=== PATIENT | female | born 1985 | race Caucasian/White ===

== ENCOUNTER → 2018-07-23 11:31 | Outpatient (CLI) | payer MEDICAID, SELFPAY ==
[2018-07-23 16:11] LABS: Cholesterol 181 mg/dL (200); High Density Lipoprotein 56 mg/dL; Triglycerides 80 mg/dL; Very Low Density Lipoprotein 16 mg/dL (5-40)
== END ==
PROVIDERS: Family Provider Family Medicine; PCP Family Medicine; Referring Provider Family Medicine; Visit Provider Family Medicine
DX: Z13.220 Encounter for screening for lipoid disorders (principal)
CPT/HCPCS: 36415; 80061

== ENCOUNTER → 2019-12-20 13:48 | Outpatient (CLI) | payer OTHER, SELFPAY ==
[2015-12-03 15:25] VITALS: BMI 23.9
[2019-12-20 16:49] LABS: Ferritin 27 ng/mL (8-252); Glucose 85 mg/dL (74-106); Sodium Level 140 mmol/L (136-145); Thyroid Stim Hormone (TSH) 1.59 uIU/mL (0.358-3.74)
[2019-12-20 18:43] LABS: Hemoglobin A1c 4.7 % (3.8-5.6)
== END ==
PROVIDERS: PCP Family Medicine; Referring Provider Family Medicine; Visit Provider Family Medicine
DX: F32.81 Premenstrual dysphoric disorder (principal); E66.9 Obesity, unspecified; F32.0 Major depressive disorder, single episode, mild
CPT/HCPCS: 36415; 82728; 82947; 83036; 84295; 84443

== ENCOUNTER 2020-08-09 04:06 | Emergency (ER) | payer BC, SELFPAY ==
[2020-08-09 04:07] VITALS: BP 134/89; PULSE 88; RESP 18; TEMP 36.3; O2SAT 99; BMI 35.9
--- NOTE | 2020-08-09 04:13 | RAD_ITS ---
STUDY: X-RAY - CERVICAL SPINE REASON FOR EXAM: Female, 35 years old. pain, radiculopathy TECHNIQUE: 4 view(s) of the cervical spine were obtained. COMPARISON: None FINDINGS: Normal anterior atlantoaxial articulation. Normal odontoid process. Normal cervical lordosis. Normal vertebral bodies and endplates. Normal disc space heights. Normal visualized intervertebral neuroforamina. The soft tissue structures are unremarkable. RAD/Cerv Spine 2 or 3 Views IMPRESSION: Normal x-ray examination of the visualized cervical spine. Electronically Signed: Eric Sanchez DO at 4:46 EDT Tel , Service support ,
[2020-08-09] MEDS: Orphenadrine 60 MG/2 ML Ampul IM (04:19)
[2020-08-09] MEDS: Ketorolac 30 MG/ML Syringe IM (04:19)
--- NOTE | 2020-08-09 05:06 | EX.ED.UPPERE ---
HPI History of Present Illness Chief Complaint: Upper Extremity Injury Informant: patient Occured/Mechanism Comment: Patient fell weeks ago and injured her right neck and right arm Onset/Context/Timing Onset: Today Context: - (After she was at the chiropractor) Timing: Continuous Current Severity: Severe Worsened by: Movement and use Associated Symptoms Associated Symptoms: Negative for Parasthesia, Weakness and Loss of Funtion Narrative Narrative: Patient fell days ago and injured her right neck and right shoulder. She has not had imaging. She was seen at a chiropractor and had some manipulation but is having continued pain. No new injuries. No blood thinner use. No weakness or numbness, but the pain does radiate down her right arm. No history of neck or back surgery. No history of immune compromise. [facility] Medical History Acute depression Home Medications cyclobenzaprine 10 mg PO TID PRN #20 tablet 08/09/20 [Rx Last Taken Unknown] escitalopram oxalate [Lexapro] 20 mg PO DAILY 08/09/20 [History Last Taken Unknown] methylprednisolone [Medrol (Nba)] 4 mg PO DAILY #21 tab 08/09/20 [Rx Last Taken Unknown] naproxen 500 mg PO BID PRN #20 tab 08/09/20 [Rx Last Taken Unknown] Allergy/AdvReac Type Severity Reaction Status Date / Time No Known Allergies Allergy Verified 08/09/20 04:11 Social History Smoking Status: Never smoker ROS ROS ED Constitutional Constitutional ED: Denies chills or sweats Eyes Eyes: Denies change in vision ENT ENT ED: Denies ear pain Cardiovascular Cardiovascular: Denies chest pain Respiratory/Chest Respiratory/Chest: Denies dyspnea Gastrointestinal Gastrointestinal: Denies abdominal pain, nausea or vomiting Genitourinary Genitourinary ED: Denies dysuria Musculoskeletal Musculoskeletal: Reports myalgias and neck pain; Denies back pain Integumentary Denies rash Neurologic Neurologic: Denies headache(s), paresthesias or weakness Psychiatric Psychiatric: Denies depression Endocrine Endocrinology: Denies polyuria Hematologic/Lymphatic Hematologic/Lymphatic: Denies easy bruising Allergic/Immunologic Allergic/Immunologic ED: Denies urticaria EXAM Physical Exam Const Vital Signs: 08/09/20 04:07 Temperature 97.3 F L Temperature Source Temporal Pulse Rate 88 Respiratory Rate 18 Blood Pressure 134/89 H Blood Pressure Mean 104 Pulse Ox 99 Positive well nourished and well developed General Appearance ED: well developed HEENT normocephalic and atraumatic Eyes EOMs intact bilaterally Neck Neck Narrative: Tenderness over the right trapezius General: tenderness Resp normal respiratory effort Cardio regular rate Back/Spine Cervical Spine: Negative for cervical spine tenderness Thoracic Spine / Upper Back: Negative for thoracic spinal tenderness Lumbar Spine / Lower Back: Negative for lumbar spinal tenderness Extremity normal to inspection Neuro oriented x3, moves all extremities, no focal motor deficits and no sensory deficits noted Sensorium / Orientation: alert Psych mental status grossly normal Skin Rashes: no rashes MDM MDM MDM Narrative Medical decision making narrative: Patient complains of cervical spine pain, but her exam is pretty unremarkable. She does have some muscle tenderness, but no midline or spinal tenderness. She is neurovascularly intact. This sounds like a radiculopathy. I did check x-rays which were unremarkable. X-rays were reviewed by the radiologist and myself. Patient was treated with medication. She will follow-up with her PCP. She was given a prescription for naproxen, Flexeril, Medrol Dosepak. Return for any new or worsening issues. Radiography Diagnostic Testing: Radiology Impression Cervical Spine X-Ray 08/09/20 04:13 IMPRESSION: Normal x-ray examination of the visualized cervical spine. Electronically Signed: Eric Sanchez DO at 4:46 EDT Tel , Service support , Discharge Plan Triage Chief Complaint: Upper Extremity Injury ED Provider: Tavo Sosa Dx/Rx/DC Orders Clinical Impression: Cervical radiculopathy Instructions: ED Radiculopathy, Cervical Prescriptions: New naproxen 500 mg tablet 500 mg PO BID PRN Qty: 20 RF: 0 cyclobenzaprine 10 mg tablet 10 mg PO TID PRN (Reason: Muscle Spasm) Qty: 20 RF: 0 methylprednisolone [Medrol (Nba)] 4 mg tablets,dose pack 4 mg PO DAILY Qty: 21 RF: 0 No Action escitalopram oxalate [Lexapro] 20 mg Tablet 20 mg PO DAILY RF: 0 Primary Care Provider: Mian Morin Referrals: Mian Morin MD [Primary Care Provider] - Disposition Disposition: Home, self care Discharge Date/Time: 08/09/20 05:23
[2020-08-09 05:21] VITALS: BP 131/60; PULSE 77; RESP 16; O2SAT 97
== END 2020-08-09 05:23 | disposition home or self-care (01) ==
LOC: ED 04:27
PROVIDERS: Emergency Provider Emergency Medicine; PCP Family Medicine
DX: M54.12 Radiculopathy, cervical region (principal); F32.9 Major depressive disorder, single episode, unspecified; Z79.52 Long term (current) use of systemic steroids; Z79.899 Other long term (current) drug therapy
CPT/HCPCS: 72040; 96372; 99282

== ENCOUNTER → 2023-07-07 | Outpatient (CLI) | payer BC, SELFPAY ==
[2023-07-07 18:18] LABS: Alanine Aminotransfer ALT/SGPT 28 U/L (13-56); Cholesterol 216 mg/dL (200); Creatinine, Serum 0.88 mg/dL (0.55-1.02); EST Glomerular Filtration Rate 77 mL/min (>60); Est Glom Filt Rate - Afr Amer 93 mL/min (>60); Sodium Level 137 mmol/L (136-145); Thyroid Stim Hormone (TSH) 1.72 uIU/mL (0.358-3.74)
[2023-07-09 04:07] LABS: LDL, Direct 120295 150 mg/dL (0-99)
== END | disposition home or self-care (01) ==
LOC: MFPLAB 16:36
PROVIDERS: PCP Family Medicine; Visit Provider Family Medicine
DX: E66.9 Obesity, unspecified (principal); F32.0 Major depressive disorder, single episode, mild
CPT/HCPCS: 36415; 82465; 82565; 83721; 84295; 84443; 84460

== ENCOUNTER → 2024-04-26 | Outpatient (CLI) | payer BC, SELFPAY ==
[2024-04-26 20:03] LABS: Alanine Aminotransfer ALT/SGPT 41 U/L (13-56); Cholesterol 163 mg/dL (200); Creatinine, Serum 0.83 mg/dL (0.55-1.02); EST Glomerular Filtration Rate 82 mL/min (>60); Est Glom Filt Rate - Afr Amer 99 mL/min (>60); High Density Lipoprotein 39 mg/dL
[2024-04-26 20:54] LABS: Hemoglobin A1c 4.7 % (3.8-5.6)
== END | disposition home or self-care (01) ==
LOC: MTLAB 14:40
PROVIDERS: PCP Family Medicine; Referring Provider Family Medicine; Visit Provider Family Medicine
DX: Z00.01 Encounter for general adult medical examination with abnormal findings (principal); E66.811 Obesity, class 1
CPT/HCPCS: 36415; 82465; 82565; 83036; 83718; 84460